=== PATIENT | male | born 1955 | race Caucasian/White ===

== ENCOUNTER → 2016-05-08 | Day surgery (SDC) | payer MEDICARE ==
[~2016-05-08] VITALS: Ht 177.8 cm; Wt 72.6 kg
[~2016-05-08] MED LIST: *morphine SULFATE 8 MG/ML PERIprocedure ONLY ONE; ACETAMINOPHEN/HYDROcodone 325 MG/5 MG TAB PO PRN; ALPR0.5T3 PO; ASPI-110 PO; BUPIVACAINE HCL PF 0.25% 30 ML VIAL ONE; BUSP10TA PO; CHLORHEXIDINE GLUCONATE 2 % 1 PACK (2 CLOTHS) TOPICAL PRN; CHLORHEXIDINE GLUCONATE 4% SOLN 120 ML BTL TOPICAL SCH; CLON1TAB PO; FAMOTIDINE 20 MG/2 ML VIAL ONE; FLUO40CA PO; GABA300C5 PO; GENTAMICIN SULFATE 80 MG/2 ML VIAL ONE; HYDR-3583 PO; INSULIN HUMAN REGULAR 1,000 UNITS/10 ML VIAL SQ PRN; KETOROLAC TROMETHAMINE 30 MG/ML (IVP) VIAL IVP ONE; LACTATED RINGER'S 1000 ML IV PRN; METOPROLOL TARTRATE 25 MG TAB PO PRN; MIDAZOLAM HCL 2 MG/2 ML VIAL ONE; MORPHINE SULFATE 4 MG/ML INJ IV PUSH PRN; NAPR500T PO; OMEP40CA2 PO; ONDANSETRON HCL 4 MG/2 ML VIAL IV PRN; ONDANSETRON HCL 4 MG/2 ML VIAL IV PUSH ONE; POVIDONE IODINE 5% (ANTISEPSIS KIT) 4 APPLICATIONS EACH NARE PRN; PROPOFOL 200 MG/20 ML AMP IV ONE; SODIUM CHLORID 0.9% 500 ML IV PRN; SODIUM CHLORIDE 0.9% FLUSH 10 ML FLUSH IV FLUSH PRN; SODIUM CHLORIDE 0.9% FLUSH 10 ML FLUSH IV FLUSH SCH; SOMA350T PO; TRAM-388 PO; VANCOMYCIN 1000 MG/NS 250 ML (for <70 kg) IV SCH; ZOFR4TAB PO; ceFAZolin 2 GM PREMIX 50 ML IV SCH
[2016-05-08 12:27] VITALS: BP 132/73; PULSE 68; RESP 16; TEMP 97.8; O2SAT 100
--- NOTE | 2016-05-08 14:46 | PD.OP ---
cc: Femi Nino Jr., MD Operative Report Date of Surgery: May 08, 2016 Preoperative Diagnosis: #1 right long trigger finger #2 left long trigger finger Postoperative Diagnosis: Same Procedure: #1 A1 woody release right long trigger finger #2 A1 woody release left long trigger finger Anesthesia: Gen. Surgeon: Femi Nino Plugger Man(s): Staff Resident Surgeon: Lynn Operation and Findings: Patient was seen and evaluated preoperatively and found to have a debilitating and painful trigger finger at the long fingers bilaterally, that has so far failed nonoperative treatment. Informed consent was obtained after detailed discussion of risk and benefits including bleeding, infection, injury to arteries, nerves, and blood vessels, weakness and numbness of hand, and tendon rupture. Informed consent was obtained. Patient received IV antibiotics prior to incision. Timeout procedure was performed. Operative extremities were prepped with alcohol followed by Hibiclens and draped usual sterile fashion. Starting with the right hand, a 1 cm long vertical incision was made with the proximal palmar crease and carried by sharp dissection through the subcutaneous tissue. Blunt dissection was used to expose the flexor tendon and the proximal edge of the A1 woody. Using a #11 knife blade, the A1 woody was incised and released from its proximal to distal extent. The finger was then put through a full range of motion with no triggering and I could see the hyperthrophic bump on the flexor tendon appear and disappear, and there was no further triggering. Attention now turned to the left hand. A 1 cm long vertical incision was made with the proximal palmar crease and carried by sharp dissection through the subcutaneous tissue. Blunt dissection was used to expose the flexor tendon and the proximal edge of the A1 woody. Using a #11 knife blade, the A1 woody was incised and released from its proximal to distal extent. The finger was then put through a full range of motion with no triggering and I could see the hyperthrophic bump on the flexor tendon appear and disappear, and there was no further triggering. The wound were irrigated copiously with normal saline and the incision closed with 4 interrupted simple sutures of 2-0 nylon. A sterile pressure dressing was placed over the hand. The patient was awakened and returned to recovery in apparently good condition. Femi Nino Jr., MD May 08, 2016 14:46
[2016-05-08 15:46] VITALS: PULSE 72; RESP 16; TEMP 97.4; O2SAT 100
[2016-05-08 16:50] VITALS: BP 154/82
--- NOTE | 2016-05-09 10:48 | EKG ---
Date Performed: 05/08/2016 Time Performed: 12:13:25 PTAGE: 60 years EKG: Sinus rhythm POSSIBLE LEFT ATRIAL ENLARGEMENT NONSPECIFIC ST & T-WAVE ABNORMALITY BORDERLINE ECG Compared to prio r tracing no significant change PREVIOUS TRACING : 08/10/2007 19.52 DOCTOR: Brandy Clement Interpretating Date/Time 05/09/2016 10:41:22
== END | disposition home or self-care (01) ==
LOC: HSDC 11:15
PROVIDERS: ATTEND Orthopaedic Surgery
DX: M65.332 Trigger finger, left middle finger (principal); M65.331 Trigger finger, right middle finger
CPT/HCPCS: 01810; 26055; 86850; 86900; 86901; 93005; J0690; J1580; J1885; J2250; J2270; J2405; J3010

== ENCOUNTER → 2016-06-19 | Day surgery (SDC) | payer MEDICARE ==
[~2016-06-19] MED LIST changes: -*morphine SULFATE 8 MG/ML PERIprocedure ONLY ONE; -ACETAMINOPHEN/HYDROcodone 325 MG/5 MG TAB PO PRN; -BUPIVACAINE HCL PF 0.25% 30 ML VIAL ONE; -CHLORHEXIDINE GLUCONATE 2 % 1 PACK (2 CLOTHS) TOPICAL PRN; -CHLORHEXIDINE GLUCONATE 4% SOLN 120 ML BTL TOPICAL SCH; -FAMOTIDINE 20 MG/2 ML VIAL ONE; -GENTAMICIN SULFATE 80 MG/2 ML VIAL ONE; -INSULIN HUMAN REGULAR 1,000 UNITS/10 ML VIAL SQ PRN; -KETOROLAC TROMETHAMINE 30 MG/ML (IVP) VIAL IVP ONE; +LACTATED RINGER'S 1000 ML INJ 1,000 ML ONE; -LACTATED RINGER'S 1000 ML IV PRN; -METOPROLOL TARTRATE 25 MG TAB PO PRN; -MIDAZOLAM HCL 2 MG/2 ML VIAL ONE; -MORPHINE SULFATE 4 MG/ML INJ IV PUSH PRN; -ONDANSETRON HCL 4 MG/2 ML VIAL IV PRN; -ONDANSETRON HCL 4 MG/2 ML VIAL IV PUSH ONE; -POVIDONE IODINE 5% (ANTISEPSIS KIT) 4 APPLICATIONS EACH NARE PRN; -SODIUM CHLORID 0.9% 500 ML IV PRN; -SODIUM CHLORIDE 0.9% FLUSH 10 ML FLUSH IV FLUSH PRN; -SODIUM CHLORIDE 0.9% FLUSH 10 ML FLUSH IV FLUSH SCH; -VANCOMYCIN 1000 MG/NS 250 ML (for <70 kg) IV SCH; -ceFAZolin 2 GM PREMIX 50 ML IV SCH
--- NOTE | 2016-06-19 12:54 | GIPROC ---
[facility] [address] [facility], [address] EGD PROCEDURE REPORT EXAM DATE: 06/19/2016 PATIENT NAME: Ilya Sanchez MR #: [id number] BIRTHDATE: 1955 ATTENDING: Luh Chung MD ORDER #: [id number] VOCATIONAL DIRECTOR: Laure Donnelly RN STATUS: outpatient INDICATIONS: The patient is a 60 yr old male here for an EGD due to history of esophageal reflux PROCEDURE PERFORMED: EGD w/ biopsy MEDICATIONS: None and Per Anesthesia. TOPICAL ANESTHETIC: CONSENT: The patient understands the risks and benefits of the procedure and understands that these risks include, but are not limited to: sedation, allergic reaction, infection, perforation and/or bleeding. Alternative means of evaluation and treatment include, among others: physical exam, x-rays, and/or surgical intervention. The patient elects to proceed with this endoscopic procedure. medical equipment was checked for proper function. Hand hygiene and appropriate measures for infection prevention was taken. After the risks, benefits and alternatives of the procedure were thoroughly explained, Informed consent was verified, confirmed and timeout was successfully executed by the treatment team. The patient was anesthetized with topical anesthesia and the EC-3890Li ([id number]) endoscope was introduced through the mouth and advanced to the second portion of the duodenum. Retroflexed views revealed no abnormalities The gastroscope was then slowly withdrawn and removed. ESOPHAGUS: There was LA Class A esophagitis noted. A biopsy was performed using cold forceps. Sample sent for histology. STOMACH: There was erythematous moderate gastritis in the gastric antrum. A biopsy was performed using cold forceps. Sample sent for histology. DUODENUM: The duodenal mucosa appeared normal. ADVERSE EVENTS: There were no complications. IMPRESSIONS: 1. There was LA Class A esophagitis noted; biopsy was performed 2. There was erythematous gastritis in the gastric antrum; biopsy was performed 3. Normal duodenal mucosa 4. Retroflexed views revealed no abnormalities RECOMMENDATIONS: 1. Await biopsy results. Biopsy results will not be ready for 7-10 days. If you don't hear from us in two weeks, call our office for biopsy results. 2. Admit to hospital 3. Carafate 1 gm po tid ac 4. Omeprazole 20 mg Q am PATIENT CONDITION: stable DISPOSITION: Home REPEAT EXAM: Return 1 year EGD pending biopsy results Luh Chung MD eSigned: Luh Chung MD 06/19/2016 12:54 PM cc: Gabriel Morton [facility] Mabel Fairchild M.D. PATIENT NAME: Laura, Ilya M MR#: [id number]
--- NOTE | 2016-06-19 13:06 | GIPROC ---
[facility] [address] [facility], [address] COLONOSCOPY PROCEDURE REPORT EXAM DATE: 06/19/2016 PATIENT NAME: Ilya Sanchez MR #: [id number] BIRTHDATE: 1955 ENDOSCOPIST: Luh Chung MD ORDER #: [id number] BRAKE HOLDER: Laure Donnelly RN STATUS: outpatient INDICATIONS: The patient is a 60 yr old male here for a colonoscopy due to average risk patient for colon cancer PROCEDURE PERFORMED: Colonoscopy with biopsy Colonoscopy with polypectomy MEDICATIONS: None and Per Anesthesia. PREP QUALITY: The Mascot Bowel Prep Score was Right colon 2, Mid colon 3, and Left colon 3. Total = 8. PREP TYPE:GoLytely ESTIMATED BLOOD LOSS: None CONSENT: The patient understands the risks and benefits of the procedure and understands that these risks include, but are not limited to: sedation, allergic reaction, infection, perforation and/or bleeding. Alternative means of evaluation and treatment include, among others: physical exam, x-rays, and/or surgical intervention. The patient elects to proceed with this endoscopic procedure. medical equipment was checked for proper function. Hand hygiene and appropriate measures for infection prevention was taken. After the risks, benefits and alternatives of the procedure were thoroughly explained, Informed consent was verified, confirmed and timeout was successfully executed by the treatment team. A digital exam revealed external hemorrhoids The EC-3890Li ([id number]) endoscope was introduced through the anus and advanced to the cecum, which was identified by both the appendix and ileocecal valve. The instrument was then slowly withdrawn as the colon was fully examined. COLON FINDINGS: A polypoid shaped sessile polyp ranging between 3-5mm in size was found at the ileocecal valve. A polypectomy was performed with cold forceps. The resection was complete and the polyp tissue was completely retrieved. A small patch of colitis was found at the ileocecal valve. The mucosa was ulcerated. A biopsy was performed using cold forceps. Retroflexed views revealed internal hemorrhoids and Retroflexed views revealed small internal hemorrhoids The scope was then completely withdrawn from the patient and the procedure terminated. PROCEDURE WITHDRAWAL TIME:6minutes ADVERSE EVENTS: There were no complications. IMPRESSIONS: 1. A sessile polyp ranging between 3-5mm in size was found at the ileocecal valve; polypectomy was performed with cold forceps 2. Small colitis was found at the ileocecal valve; The mucosa was ulcerated; biopsy was performed using cold forceps 3. Retroflexed views revealed internal hemorrhoids 4. Retroflexed views revealed small internal hemorrhoids 5. Revealed external hemorrhoids RECOMMENDATIONS: 1. Await biopsy results. Biopsy results will not be ready for 7-10 days. If you don't hear from us in two weeks, call our office for results. 2. Continue surveillance 3. Yearly hemoccult RECALL: Return 5 years Colonoscopy, pending biopsy results Luh Chung MD eSigned: Luh Chung MD 06/19/2016 1:06 PM cc: Gabriel Morton, [facility] Mabel and Pritesh Fairchild M.D. PATIENT NAME: Ilya Sanchez MR#: [id number]
== END | disposition home or self-care (01) ==
LOC: ESDC 11:23
PROVIDERS: ATTEND Internal Medicine Gastroenterology
DX: Z12.11 Encounter for screening for malignant neoplasm of colon (principal); D12.0 Benign neoplasm of cecum; K52.9 Noninfective gastroenteritis and colitis, unspecified; K64.8 Other hemorrhoids; K64.4 Residual hemorrhoidal skin tags; K21.9 Gastro-esophageal reflux disease without esophagitis; K20.9 Esophagitis, unspecified; K29.70 Gastritis, unspecified, without bleeding
CPT/HCPCS: 00740; 00810; 43239; 45380; 88305; 88312; J3010; J7120